=== PATIENT | male | born 2000 | race Two or more races ===

== ENCOUNTER 2019-08-05 18:42 | Emergency (ER) | payer MEDICAID, OTHER ==
[~2019-08-05] VITALS: Ht 177.8 cm; Wt 79.4 kg
--- NOTE | 2019-08-05 18:50 | NUR ---
ED Nurse Note: patient walked into ED from home c/o fever and sorethroat. patient reports coughing for 2-3 days. patient is alert awake x4 ambulatory.
[2019-08-05 19:05] VITALS: BP 134/71
--- NOTE | 2019-08-05 19:07 | NUR ---
HAND-OFF: Report given to MICHELLE GALVEZ.
--- NOTE | 2019-08-05 19:10 | Emergency Room Report ---
History of Present Illness General Chief Complaint: Sore Throat Source: Patient Present Illness HPI 18-year-old male with no significant past medical history here complaining 2 days of a 10 out of 10 sore throat difficulty swallowing. Patient speaks in full sentences. Denies any fever and chills, complains of minor cough and asthma exacerbation. Has not been able to use albuterol inhaler as patient has not had any recent refills. Denies any recent travel, abdominal pain, nausea vomiting. Allergies: Coded Allergies: No Known Allergies (Unverified , 08/05/19) Patient History Past Medical History: see triage record Past Surgical History: none Pertinent Family History: none Immunizations: UTD Reviewed Nursing Documentation: PMH: Agreed; PSxH: Agreed Nursing Documentation-PMH Past Medical History: No History, Except For Hx Asthma: Yes Review of Systems All Other Systems: negative except mentioned in HPI Physical Exam Vital Signs Date Time Temp Pulse Resp B/P (MAP) Pulse Ox O2 Delivery O2 Flow Rate FiO2 08/05/19 18:44 98.6 102 20 134/71 (92) 95 Room Air Sp02 EP Interpretation: reviewed, normal General Appearance: no apparent distress, alert, GCS 15, non-toxic Head: normocephalic, atraumatic Eyes: bilateral eye normal inspection, bilateral eye PERRL ENT: no angioedema, TMs + canals normal, tonsillar swelling, pharyngeal erythema, tonsillar exudate Neck: supple, no meningismus, other - Anterior cervical lymphadenopathy Respiratory: chest non-tender, lungs clear, normal breath sounds, no rhonchi, no wheezing, speaking full sentences Cardiovascular #1: regular rate, rhythm, no edema, no murmur, normal capillary refill Cardiovascular #2: 2+ carotid (R), 2+ carotid (L) Gastrointestinal: normal bowel sounds, non tender, soft, non-distended, no guarding, no rebound Rectal: deferred Genitourinary: no CVA tenderness Musculoskeletal: back normal Neurologic: alert, motor strength/tone normal, oriented x3, sensory intact, responsive, speech normal Psychiatric: normal inspection, judgement/insight normal Skin: no rash, normal color Lymphatic: adenopathy - Anterior cervical lymphadenopathy Medical Decision Making PA Attestation All my diagnosis and treatment plans were reviewed ad discussed with my supervising physician Dr. Anne Diagnostic Impression: Primary Impression: Strep pharyngitis Additional Impression: Asthma ER Course 18-year-old male with no significant past medical history here complaining 2 days of a 10 out of 10 sore throat difficulty swallowing. Patient speaks in full sentences. Denies any fever and chills, complains of minor cough and asthma exacerbation. Has not been able to use albuterol inhaler as patient has not had any recent refills. Denies any recent travel, abdominal pain, nausea vomiting. Ddx considered but are not limited to: strep pharyngitis, URI, tonsillitis, peritonsillar abscess, influneza Vital signs: are WNL, pt. is afebrile H&PE are most consistent with: Strep pharyngitis, asthma ORDERS: Augmentin, prednisone, albuterol, guaifenesin ED INTERVENTIONS: None required at this time. DISCHARGE: At this time pt. is stable for d/c to home. Will provide printed patient care instructions, and any necessary prescriptions. Care plan and follow up instructions have been discussed with the patient prior to discharge. Take medication as directed, follow-up primary care provider, increase oral hydration, worsening symptoms return to the emergency room Last Vital Signs Date Time Temp Pulse Resp B/P (MAP) Pulse Ox O2 Delivery O2 Flow Rate FiO2 08/05/19 18:44 98.6 102 20 134/71 (92) 95 Room Air Disposition: HOME, SELF-CARE Condition: Stable Scripts Albuterol Sulfate (VENTOLIN HFA) 18 Gm Hfa.aer.ad 2 PUFFS INH EVERY 6 HOURS, #18 GM 0 Refills Prov: Steve Serrano 08/05/19 Guaifenesin* (GUAIFENESIN*) 100 Mg/5 Ml Liquid 15 ML ORAL Q6H, #120 ML 0 Refills Prov: Steve Serrano 08/05/19 Prednisone* (PREDNISONE*) 20 Mg Tablet 40 MG ORAL DAILY for 5 Days, #10 TAB Prov: Steve Serrano 08/05/19 Amoxicillin/Potassium Clav 875-125* (AUGMENTIN 875-125 TABLET*) 1 Each Tablet 1 TAB ORAL TWICE A DAY for 10 Days, #20 TAB Prov: Steve Serrano 08/05/19 Patient Instructions: Asthma, Adult, [id number] Additional Instructions: Take medication as directed, follow with your primary care provider, increase oral hydration, if worsening symptoms return to the emergency room Steve Serrano Aug 05, 2019 19:10
--- NOTE | 2019-08-05 19:10 | NUR ---
ED Nurse Note: ERMD at bedside
[2019-08-05] MEDS ORDERED: AUGMENTIN 875-1 EAC1 ORAL (19:11)
[2019-08-05] MEDS ORDERED: GUAIFENESI100 MG/5 M ORAL (19:11)
[2019-08-05] MEDS ORDERED: PREDNISONE20 MG ORAL (19:11)
[2019-08-05] MEDS ORDERED: VENTOLIN HFA18 GM INH (19:11)
[2019-08-05 19:15] VITALS: BP 134/71
--- NOTE | 2019-08-05 19:15 | NUR ---
ER DISCHARGE NOTE: Patient is cleared to be discharged home per ERMD, pt is aox4, on room air, with stable vital signs. pt was given dc and prescription instructions, pt was able to verbalize understanding, pt id band. pt is able to ambulate with steady gait. pt took all belongings.
== END 2019-08-05 19:15 | disposition home or self-care (01) ==
LOC: EMR 19:10
DX: J02.0 Streptococcal pharyngitis (principal); J45.909 Unspecified asthma, uncomplicated
CPT/HCPCS: 99282

== ENCOUNTER 2019-11-03 20:54 | Emergency (ER) | payer MEDICAID ==
[~2019-11-03] VITALS: Ht 177.8 cm; Wt 90.7 kg
[~2019-11-03 20:54] MED LIST: AUGMENTIN 875-1 EAC1 ORAL; GUAIFENESI100 MG/5 M ORAL; PREDNISONE20 MG ORAL; VENTOLIN HFA18 GM INH
[2019-11-03] MEDS ORDERED: ANTI-ITCH28 G1 TP (21:04)
[2019-11-03] MEDS ORDERED: PREDNISONE20 MG ORAL (21:04)
[2019-11-03 21:05] VITALS: BP 124/59
--- NOTE | 2019-11-03 21:05 | NUR ---
Nurse Note: Pt walked in c/o redness on upper lip and RT eye for unk time. Pt stated he has Eczema and is taking cortozone but not effective. Denies itchiness, drainage, puss.
--- NOTE | 2019-11-03 21:11 | Emergency Room Report ---
History of Present Illness General Chief Complaint: Skin Rash/Abscess Source: Patient Present Illness HPI Patient is a 19-year-old male past medical history of eczema who presents to the ER complaining of dry rash to his face. He states that it feels like his eczema. He denies any fever or chills. He tried exyx-hsh-dhnoite hydrocortisone but still complains of dry skin. He denies any purulent discharge. Allergies: Coded Allergies: No Known Allergies (Unverified , 08/05/19) COVID-19 Screening Contact w/high risk pt: No Recent Travel to affected area: No Experienced COVID-19 symptoms?: No COVID-19 Testing performed OCCUPATIONAL HEALTH NURSING DIRECTOR: No Patient History Past Medical History: other - Eczema Past Surgical History: none Social History: Denies: smoking, alcohol use, drug use Nursing Documentation-[facility] [place] Hx Asthma: Yes Review of Systems All Other Systems: negative except mentioned in HPI Physical Exam Vital Signs Date Time Temp Pulse Resp B/P (MAP) Pulse Ox O2 Delivery O2 Flow Rate FiO2 11/03/19 21:00 98.4 73 16 124/59 (80) 98 Sp02 EP Interpretation: reviewed, normal General Appearance: no apparent distress, alert, GCS 15, non-toxic Head: normocephalic, atraumatic Eyes: bilateral eye normal inspection, bilateral eye PERRL ENT: hearing grossly normal, normal pharynx, no angioedema, normal voice Neck: full range of motion, supple/symm/no masses Respiratory: chest non-tender, lungs clear, normal breath sounds, speaking full sentences Cardiovascular #1: regular rate, rhythm, no edema Cardiovascular #2: 2+ carotid (R), 2+ carotid (L) Gastrointestinal: normal bowel sounds, non tender, soft, non-distended, no guarding, no rebound Rectal: deferred Genitourinary: normal inspection, no CVA tenderness Musculoskeletal: back normal, normal range of motion, gait/station normal, non- tender Neurologic: alert, motor strength/tone normal, oriented x3, sensory intact, responsive, speech normal Psychiatric: no suicidal/homicidal ideation Skin: other - Scaly plaque scattered around face most prominent above his lip below his nose and to his left eyebrow no erythema or discharge Lymphatic: no adenopathy Medical Decision Making Diagnostic Impression: Primary Impression: Dermatitis ER Course Patient given a prescription for hydrocortisone cream as well as prednisone. After discussing risks and benefits of further diagnostics, treatment plans, as well as indications for and risks of admission, the patient is agreeable to being discharged home. I have explained that their evaluation and treatment in the emergency department today is an important step towards them achieving better health but that their evaluation today is not intended to replace further evaluation and treatment by a physician in their local clinic. I have explained that while the current findings suggest no immediate life threatening emergency they will require further evaluation and treatment by a physician of their choice in their area. They understand that it will be necessary for them to review the final reports of their ED visit with their clinic physician. We have reviewed indications for return to the Emergency Department. I have explained that additional time may need to pass and/or additional testing as an outpatient may be necessary before a definitive diagnosis can be made. They tell me they are willing to follow up as instructed within the timeframe I recommend. They appear to understand what we discussed. Additionally they understand that if they are unable to be seen by an outpatient physician they are welcome, and in fact should, return to the Emergency Department for a repeat evaluation. The patient is stable at time of discharge. Last Vital Signs Date Time Temp Pulse Resp B/P (MAP) Pulse Ox O2 Delivery O2 Flow Rate FiO2 11/03/19 21:00 98.4 73 16 124/59 (80) 98 Disposition: HOME, SELF-CARE Condition: Stable Scripts Prednisone* (PREDNISONE*) 20 Mg Tablet 40 MG ORAL DAILY, #5 TAB Prov: Augusta Anne M.D. 11/03/19 Hydrocortisone 2% Cream (ANTI-ITCH 2% CREAM) Y Cr 28 GM TP BID for 14 Days, GM Prov: Augusta Anne M.D. 11/03/19 Referrals: [facility] Patient Instructions: Eczema Additional Instructions: The patient was provided with discharge instructions, notified to follow-up with a primary care doctor and or specialist in the next 24-48 hours, and to return to the ED if they have worsening of their symptoms. Please note that this report is being documented using [employer] technology. This can lead to erroneous entry secondary to incorrect interpretation by the dictating instrument. Augusta Anne M.D. Nov 03, 2019 21:11
[2019-11-03 21:15] VITALS: BP 124/59
--- NOTE | 2019-11-03 21:15 | NUR ---
ED Nurse Note: Pt cleared by health care Provider for discharge. DC instructions/prescription was given and explained to pt and verbalized understanding of teachings. All medical deviecs such as ID band removed. Pt is AAO x4, ambulatory and left with all personal belongings.
== END 2019-11-03 21:15 | disposition home or self-care (01) ==
LOC: EMR 21:10
DX: L30.9 Dermatitis, unspecified (principal)
CPT/HCPCS: 99282

== ENCOUNTER 2019-11-05 19:40 | Emergency (ER) | payer MEDICAID ==
[~2019-11-05] VITALS: Ht 180.3 cm; Wt 90.7 kg
[~2019-11-05 19:40] MED LIST changes: +ANTI-ITCH28 G1 TP
[2019-11-05 19:51] VITALS: BP 166/96
[2019-11-05] MEDS ORDERED: ACYCLOVIR200 MG/51 ORAL (20:06)
[2019-11-05 20:12] VITALS: BP 166/96
--- NOTE | 2019-11-05 21:27 | Emergency Room Report ---
History of Present Illness General Chief Complaint: Skin Rash/Abscess Source: Patient Present Illness HPI Disclaimer: Please note that this report is being documented using [employer] technology. This can lead to erroneous entry secondary to incorrect interpretation by the dictating instrument. HPI: 19-year-old male presents for concern for herpes. He states he had sexual intercourse with a female over the past month and then developed lesions on his penis and his face. He has never had herpes before. No fevers nausea or vomiting. He denies any penile discharge. PMH: Asthma PSH: Reviewed Social Hx: Smokes occasionally drinks occasionally denies illicit drug use Allergies: Coded Allergies: No Known Allergies (Unverified , 08/05/19) COVID-19 Screening Contact w/high risk pt: No Recent Travel to affected area: No Experienced COVID-19 symptoms?: No COVID-19 Testing performed CLOTHING PATTERNMAKER: No Patient History Reviewed Nursing Documentation: PMH: Agreed; PSxH: Agreed Nursing Documentation-PMH Past Medical History: No History, Except For Hx Asthma: Yes Review of Systems All Other Systems: negative except mentioned in HPI Physical Exam Vital Signs Date Time Temp Pulse Resp B/P (MAP) Pulse Ox O2 Delivery O2 Flow Rate FiO2 11/05/19 19:42 98.1 84 16 166/96 (119) 97 Room Air Sp02 EP Interpretation: reviewed, normal General Appearance: well appearing, no apparent distress Head: normocephalic, atraumatic Eyes: bilateral eye PERRL, bilateral eye EOMI ENT: hearing grossly normal, moist mucus membranes, other - Vesicular lesions noted to upper lip Neck: full range of motion, supple Respiratory: lungs clear, normal breath sounds, no rhonchi, no respiratory distress, no retraction, no wheezing Cardiovascular #1: normal peripheral pulses, regular rate, rhythm, no murmur Gastrointestinal: non tender, soft, non-distended, no guarding Genitourinary: other - Patient declined testicular examination Neurologic: alert, oriented x3, no focal defects Skin: normal color, warm/dry Medical Decision Making Diagnostic Impression: Primary Impression: Herpes genitalis in men ER Course Patient presented due to concern for herpes genitalis and labialis. His upper lip did appear to have vesicular lesions. He declined examination of his testicular region. This is his first outbreak. I will start patient on acyclovir. He is otherwise nontoxic, no acute distress, stable for discharge, instructed to avoid sexual intercourse and complete antivirals. Last Vital Signs Date Time Temp Pulse Resp B/P (MAP) Pulse Ox O2 Delivery O2 Flow Rate FiO2 11/05/19 20:12 98.1 84 16 166/96 97 Room Air Disposition: HOME, SELF-CARE Condition: Stable Scripts Acyclovir (ACYCLOVIR) 200 Mg/5 Ml Oral.susp 200 MG ORAL Q4HR, #28 ML Prov: Guilherme Alonzo M.D. 11/05/19 Referrals: [facility] (PCP) [facility] Patient Instructions: Genital Herpes Additional Instructions: Patient is instructed to follow-up with her primary care doctor, primary care clinic or on license of [facility] clinic in 1 to 2 days. Patient instructed to return for any worsening symptoms or concerns. Disclaimer: Please note that this report is being documented using [employer] technology. This can lead to erroneous entry secondary to incorrect interpretation by the dictating instrument. Guilherme Alonzo M.D. Nov 05, 2019 21:27
== END 2019-11-05 20:12 | disposition home or self-care (01) ==
LOC: EMR 20:06
DX: A60.00 Herpesviral infection of urogenital system, unspecified (principal); J45.909 Unspecified asthma, uncomplicated
CPT/HCPCS: 99282